=== PATIENT | female | born 1975 | race American Indian/Alaskan Native ===

== ENCOUNTER 2022-01-01 07:18 | Day surgery (SDC) | payer BC ==
[2022-01-01] MEDS ORDERED: ASPIRIN EC 325 MG TAB PO ONE (08:41)
[2022-01-01 08:53] LABS: Basophils # (Auto) 0.1 K/mm3 (0.0-0.1); Basophils % (Auto) 1.4 % (0.0-1.8); Eosinophils # (Auto) 0.3 K/mm3 (0.0-0.4); Eosinophils % (Auto) 5.3 % (0.0-4.3); Hematocrit 39.6 % (30.3-42.9); Hemoglobin 13.7 gm/dl (10.1-14.3); Lymphocytes # (Auto) 1.4 K/mm3 (1.2-5.4); Lymphocytes % (Auto) 23.7 % (13.4-35.0); Mean Corpuscular HGB Conc 35 % (30-34); Mean Corpuscular Volume 84 fl (79-97); Monocytes # (Auto) 0.3 K/mm3 (0.0-0.8); Monocytes % (Auto) 5.7 % (0.0-7.3); Platelet Count 308 K/mm3 (140-440); Red Blood Count 4.69 M/mm3 (3.65-5.03); Red Cell Distribution Width 14.6 % (13.2-15.2)
[2022-01-01] MEDS: SODIUM CHLORIDE 0.9% 500 ML 500 ML IV SCH ×2 (08:59→10:37)
[2022-01-01 09:05] LABS: INR 1.02 (0.87-1.13)
[2022-01-01 09:07] LABS: Blood Urea Nitrogen 10 mg/dL (7-17); Calcium 9.5 mg/dL (8.4-10.2); Hemolysis Index 98
[2022-01-01 09:08] LABS: BUN/Creatinine Ratio 17
[2022-01-01] MEDS ORDERED: VERAPAMIL 5 MG/2 ML INJ ONE (10:10)
[2022-01-01] MEDS ORDERED: HEPARIN 10,000 UNITS/10 ML VIAL ONE (10:10)
[2022-01-01] MEDS ORDERED: fentaNYL 100 MCG/2 ML INJ ONE (10:10)
[2022-01-01] MEDS ORDERED: HEPARIN/NS 5000 UNIT/500ML 1,000 ML IR ONE (10:10)
[2022-01-01] MEDS ORDERED: MIDAZOLAM 2 MG/2 ML INJ ONE (10:10)
[2022-01-01] MEDS ORDERED: LIDOCAINE (2%) 20 MG/1 ML VIAL 50 ML MDV INFILTRATI ONE (10:11)
[2022-01-01] MEDS ORDERED: NITROGLYCERIN SYRINGE 3 ML ONE (10:11)
[2022-01-01] MEDS ORDERED: HYDROcodone/ACETAMINOPHEN 5-325 MG TAB PO PRN (10:54)
[2022-01-01] MEDS ORDERED: traMADol 50 MG TAB PO PRN (10:54)
--- NOTE | 2022-01-01 10:56 | Short Stay Summary ---
Short Stay Documentation Date of service: 01/01/22 - History H&P: obtained from office - Allergies and Medications Current Medications: Allergies cephalexin Allergy (Verified 01/01/22 07:55) Nausea ciprofloxacin Allergy (Verified 01/01/22 07:55) Rash Home Medications Medication Instructions Recorded Confirmed Last Taken Type B-Complex with Vitamin C [Vitamin 1,000 each PO 1XW 01/01/22 01/01/22 12/20/21 History B-Complex with Vit C] Digoxin [Lanoxin] 125 mcg PO DAILY 01/01/22 01/01/22 12/31/21 History Fluticasone [Flonase] 1 spray BID 01/01/22 01/01/22 12/30/21 History Furosemide [Lasix] 20 mg PO QDAY 01/01/22 01/01/22 12/31/21 History Glimepiride [Amaryl] 4 mg PO BID 01/01/22 01/01/22 12/30/21 History Levothyroxine [Synthroid] 75 mcg PO QAM 01/01/22 01/01/22 12/31/21 History Potassium Chloride [Klor-Con M20] 20 meq PO DAILY 01/01/22 01/01/22 12/31/21 History Sitagliptin Phosphate [Januvia] 100 mg PO DAILY 01/01/22 01/01/22 12/31/21 History Zolpidem [Ambien] 10 mg PO QHS PRN 01/01/22 01/01/22 12/28/21 History buPROPion HCL [Bupropion Xl] 150 mg PO DAILY 01/01/22 01/01/22 12/19/21 History Active Medications Sodium Chloride (Nacl 0.9% 500 Ml) 500 mls @ 50 mls/hr IV DIRECT VIKTOR Stop: 01/01/22 18:59 Last Admin: 01/01/22 10:37 Dose: 50 mls/hr - Physical exam Integumentary: other (Dressing clean dry and intact with no signs of bleeding or hematoma) - Brief post op/procedure progress note Date of procedure: 01/01/22 Pre-op diagnosis: CHF Post-op diagnosis: same Anesthesia: local Estimated blood loss: minimal - Hospital course Hospital course: Patient presents today for cardiac catheterization. Patient tolerated procedure well with no complications. Patient discharged home and follow-up as an outpatient in the - Disposition Condition at discharge: Good Disposition: 01 HOME / SELF CARE / HOMELESS - Discharge Diagnoses (1) CHF (congestive heart failure) Status: Acute (2) Diabetes Status: Acute Short Stay Discharge Plan Activity: advance as tolerated Diet: low fat, low cholesterol, low salt Wound: keep clean and dry, per your surgeon's advice Follow up with: RHIANNON KING MD [Primary Care Provider] - 7 Days DELMI OLMSTEAD MD [Staff Physician] - 01/20/22 8:45 am (Patient has a follow-up appointment on 01/20/2022 at 8:45 AM in our [place] location phone #[phone] )
--- NOTE | 2022-01-01 12:03 | Cardiac Catherization Report ---
DATE OF SERVICE: 01/01/2022 LEFT HEART CATHETERIZATION ANESTHESIA: Done with moderate sedation, started at 10:30, finished at 10:45, 15 minutes of moderate sedation. DESCRIPTION OF PROCEDURE: Procedure was done via the right radial artery, sterile technique, local anesthesia. A 6-Icelandic radial sheath inserted. Left system engaged with JL3.5 catheter. Left main is large and patent, bifurcates into large LAD, is patent. Diagonal 1, diagonal 2, small to medium caliber, patent. Circumflex, large caliber, was patent. OM1, OM2, medium caliber vessel, patent. RCA engaged with JR4 catheter, large, dominant vessel, patent. PDA, PLV are small to medium caliber, patent. LV gram done in GERMAN and HARPER view. Mildly dilated LV with mild borderline LV function, EF approximately 45%, LVEDP of 25 mmHg, LV is 126, aortic is 126/85. No gradient across the aortic valve on pullback. The 5-Icelandic catheters all overtaken guidewire. A 6-Icelandic radial sheath was discontinued. Radial band applied. No hematoma, no bleeding. SUMMARY: Left main patent, LAD patent, circumflex patent, RCA patent. Borderline LV function, EF at 45%. Nonischemic cardiomyopathy and discussed this with the patient and the patient's family in detail. TID: [id number] RECEIPT: [id number] JORI
[2022-01-01 12:38] VITALS: BP 123/86
--- NOTE | 2022-01-05 18:26 | Electrocardiograph Report ---
[facility] Test Date: 2022-01-01 Test Time: 08:20:56 Pat Name: GAIL DIAZ Department: Room: Gender: F Script Manager: KRUPA : 1975 Requested By: LUCIAN ELDER Order Number: [id number] Reading MD: Annelise Valerio Measurements Intervals [place] Rate: 104 P: 65 CO: 188 QRS: 52 QRSD: 89 T: 5 QT: 359 QTc: 473 Interpretive Statements Sinus tachycardia Probable left atrial enlargement No previous ECG available for comparison Electronically Signed On 01-05-2022 18:26:16 EDT by Annelise Valerio
== END 2022-01-01 14:00 | disposition home or self-care (01) ==
LOC: CATHLABREC 07:18
PROVIDERS: ATTEND Internal Medicine
DX: R94.39 Abnormal result of other cardiovascular function study (principal); R06.09 Other forms of dyspnea; R07.89 Other chest pain; I42.8 Other cardiomyopathies; I48.0 Paroxysmal atrial fibrillation; E78.5 Hyperlipidemia, unspecified; I50.9 Heart failure, unspecified; E11.9 Type 2 diabetes mellitus without complications; I34.0 Nonrheumatic mitral (valve) insufficiency; E66.9 Obesity, unspecified; Z85.3 Personal history of malignant neoplasm of breast; Z90.710 Acquired absence of both cervix and uterus; Z90.13 Acquired absence of bilateral breasts and nipples; Z79.899 Other long term (current) drug therapy; Z88.1 Allergy status to other antibiotic agents; Z88.8 Allergy status to other drugs, medicaments and biological substances; Z98.890 Other specified postprocedural states
CPT/HCPCS: 36415; 80048; 85025; 85610; 85730; 93005; 93458; 99156; C1894; J1644; J1815; J2250; J3010; J3490; J7040; Q9967